=== PATIENT | male | born 1990 | race African-American/Black ===

== ENCOUNTER 2020-11-03 08:31 | Emergency (ER) | payer SELFPAY ==
[~2020-11-03] VITALS: Ht 167.6 cm; Wt 62.5 kg
[2020-11-03 08:35] VITALS: BP 137/89
[2020-11-03] MEDS ORDERED: ONDANSETRON PF 4 MG/2 ML VIAL. ONE (08:56)
[2020-11-03] MEDS ORDERED: fentaNYL PF VIAL 100 MCG/2 ML VIAL ONE (08:57)
[2020-11-03] MEDS ORDERED: DIPH,PERTUSS(ACELL),TET VAC/PF 0.5 ML SYRINGE. VAX IM ONE (09:30)
[2020-11-03] MEDS ORDERED: fentaNYL PF VIAL 100 MCG/2 ML VIAL IVP ONE ×2 (09:30→10:15)
[2020-11-03] MEDS ORDERED: ONDANSETRON PF 4 MG/2 ML VIAL. IVP ONE (09:30)
--- NOTE | 2020-11-03 09:39 | PHYS DOC ---
Past Medical History Past Surgical History: Other Additional Past Surgical Histo: FLUID PU[employer]PER[employer] SHUNT General Adult EDM: Chief Complaint: OTHER COMPLAINTS HPI: HPI: Patient is a 30 year old male who presents with here from [place] working and was going to go home and just check out of his hotel when he was running after a ball that his daughter threw and was not pink attention and ran into the side of a metal trash bin. This caused a deep laceration to the left upper cheek that extends through and through the left side of the nose and septum and then extends down into the upper left side of the lip but that is not through and through. When patient speaks the skin opens. He does have blood coming out of his nose. He states he does need a tetanus shot. States he is feeling queasy and rates his throbbing facial pain at a 10 out of 10. He denies loss of consciousness, vomiting, dizziness, neck pain, back pain, vision change, numbness or tingling. 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 Review of Systems: Review of Systems: Constitutional: Denies fever or chills. [] Eyes: Denies change in visual acuity. [] HENT: Denies nasal congestion or sore throat. [] Respiratory: Denies cough or shortness of breath. [] Cardiovascular: Denies chest pain or edema. [] GI: Denies abdominal pain, nausea, vomiting, bloody stools or diarrhea. [] : Denies dysuria. [] Musculoskeletal: Denies back pain or joint pain. + Facial pain [] Integument: Denies rash. + Facial laceration [] Neurologic: +headache, denies focal weakness or sensory changes. [] Endocrine: Denies polyuria or polydipsia. [] Lymphatic: Denies swollen glands. [] Psychiatric: Denies depression or anxiety. [] Heart Score: C/O Chest Pain: No Risk Factors: Risk Factors: DM, Current or recent (<one month) smoker, HTN, HLP, family history of CAD, obesity. Risk Scores: Score 0 - 3: 2.5% MACE over next 6 weeks - Discharge Home Score 4 - 6: 20.3% MACE over next 6 weeks - Admit for Clinical Observation Score 7 - 10: 72.7% MACE over next 6 weeks - Early Invasive Strategies Current Medications: Current Medications Medications (Trade) Dose Ordered Sig/Bernard Start Time Stop Time Status Last Admin Dose Admin Cefazolin Sodium/ Dextrose 50 ml @ 100 mls/hr 1X ONCE 11/03/20 09:30 11/03/20 09:59 Diphtheria/ Tetanus/Acell Pertussis (ADACEL TDap SYRINGE) 0.5 ml ONCE ONCE 11/03/20 09:30 11/03/20 09:31 DC Fentanyl Citrate (Fentanyl 2ml Vial) 50 mcg 1X ONCE 11/03/20 09:30 11/03/20 09:31 DC 11/03/20 09:26 50 MCG Ondansetron HCl (Zofran) 4 mg 1X ONCE 11/03/20 09:30 11/03/20 09:31 DC 11/03/20 09:25 4 MG Allergies: Allergies: Allergies Coded Allergies Type Severity Reaction Last Updated Verified No Known Drug Allergies 11/03/20 No Physical Exam: PE: Constitutional: Well developed, well nourished, no acute distress, non-toxic appearance. [] HENT: Normocephalic, atraumatic, bilateral external ears normal, oropharynx moist, no oral exudates, nose laceration. [] Eyes: PERRLA, EOMI, conjunctiva normal, no discharge. [] Neck: Normal range of motion, no tenderness, supple, no stridor. [] Cardiovascular:Heart rate regular rhythm, no murmur [] Lungs & Thorax: Bilateral breath sounds clear to auscultation [] Abdomen: Bowel sounds normal, soft, no tenderness, no masses, no pulsatile masses. [] Skin: Warm, dry, no erythema, no rash. Extensive facial laceration that is deep and opens when he speaks that is through and through to the left upper cheek to the left side of the nose and through the septum and down into the left upper mustache area but does not cross over the vermilion border and that is not through and through. [] Back: No tenderness, no CVA tenderness. [] Extremities: No tenderness, no cyanosis, no clubbing, ROM intact, no edema. [] Neurologic: Alert and oriented X 3, normal motor function, normal sensory function, no focal deficits noted. [] Psychologic: Affect normal, judgement normal, mood normal. [] Current Patient Data: Vital Signs: Vital Signs Date Time Temp Pulse Resp B/P (MAP) Pulse Ox O2 Delivery O2 Flow Rate FiO2 11/03/20 08:35 98.1 88 18 137/89 98 Room Air 98.1 EKG: EKG: [] Radiology/Procedures: Radiology/Procedures: [] Impression: [facility] [address] [place] [address] IMAGING REPORT Signed PATIENT: IRINA MARRERO: [id number] : 1990 LOCATION: ER AGE: 30 SEX: M EXAM STATUS: REG ER ORD. PHYSICIAN: NAHEED BAIRD MD REASON: shunt, trauma PROCEDURE: SKULL 2V EXAM: Skull, 2 views; chest, 2 views; abdomen, single view. HISTORY: Trauma. Shunt. COMPARISON: None. FINDINGS: 2 views of the skull and chest and a frontal view the abdomen are obtained. There are paired parietal approach ventricular catheter terminating over the expected location of the anterior lateral ventricles. There is a single catheter coursing through the neck and along the right thorax and right abdomen to terminate within the right hemipelvis. There is slight calcification along the proximal catheter. There is no infiltrate, pleural effusion or pneumothorax. The heart is normal in size. There is moderate colonic stool. There is no evidence of bowel obstruction. IMPRESSION: 1. Parietal approach ventricular catheters terminating over the expected location of the anterior lateral ventricles, with a single catheter coursing through the neck and along the chest and abdomen to terminate within the pelvis. 2. No acute finding. Electronically signed by: Raissa Morin MD (11/03/2020 10:18 AM) [id number] DICTATED and SIGNED BY: RAISSA MORIN MD DATE: 11/03/20 [id number] 0 [facility] [address] [place] [address] IMAGING REPORT Signed PATIENT: IRINA MARRERO: [id number] : 1990 LOCATION: ER AGE: 30 SEX: M EXAM STATUS: REG ER ORD. PHYSICIAN: NAHEED BAIRD MD REASON: shunt, trauma PROCEDURE: KUB EXAM: Skull, 2 views; chest, 2 views; abdomen, single view. HISTORY: Trauma. Shunt. COMPARISON: None. FINDINGS: 2 views of the skull and chest and a frontal view the abdomen are obta ined. There are paired parietal approach ventricular catheter terminating over the expected location of the anterior lateral ventricles. There is a single catheter coursing through the neck and along the right thorax and right abdomen to terminate within the right hemipelvis. There is slight calcification along the proximal catheter. There is no infiltrate, pleural effusion or pneumothorax. The heart is normal in size. There is moderate colonic stool. There is no evidence of bowel obstruction. IMPRESSION: 1. Parietal approach ventricular catheters terminating over the expected location of the anterior lateral ventricles, with a single catheter coursing through the neck and along the chest and abdomen to terminate within the pelvis. 2. No acute finding. Electronically signed by: Raissa Morin MD (11/03/2020 10:18 AM) [id number] DICTATED and SIGNED BY: RAISSA MORIN MD DATE: 11/03/20 [id number] 0 [facility] [address] [place] [address] IMAGING REPORT Signed PATIENT: MARIA ISABEL MARREROCCOUNT: [id number] : 1990 LOCATION: ER AGE: 30 SEX: M EXAM STATUS: REG ER ORD. PHYSICIAN: NAHEED BAIRD MD REASON: TRAUMA, FACIAL INJURY, RAN INTO DUMPSTER PROCEDURE: CT HEAD AND MAXILLOFACIAL WO EXAM: Head and maxillofacial bone CT without contrast. HISTORY: Trauma. TECHNIQUE: Computed tomographic images of the head and maxillary facial bone were obtained without contrast. *One or more of the following individualized dose reduction techniques were utilized for this examination: 1. Automated exposure control. 2. Adjustment of the mA and/or kV according to patient size. 3. Use of iterative reconstruction technique. COMPARISON: None. FINDINGS: There are paired right parietal approach ventricular catheters terminating along the superior anterior aspects of the compressed lateral ventricles. 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 There are suspected partial absence of the corpus callosum. There is no hemorrhage. There is no mass effect. The mastoid air cells are clear. The posterior arch of C1 is incidentally n onfused. The temporomandibular joints are intact. There is a right nasal bone fracture. There are tiny foci of gas within the left anterior nasal and maxillary soft tissues, the latter which is associated with a small soft tissue hematoma. There is leftward nasal septal deviation. The ostiomeatal units are patent. There is incidental torus medullaris. There is no acute finding invo lving the proximal cervical spine. There is endplate remodeling at multiple levels. IMPRESSION: 1. No acute intracranial finding. 2. Mildly displaced right nasal bone fracture of uncertain chronicity. This may be acute given the presence of contralateral anterior nasal and anterior maxillary soft tissue gas and a soft tissue hematoma 3. Bilateral right parietal approach ventricular catheters within decompressed lateral ventricles. 4. 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 These findings can be better assessed with a nonemergent MRI. Electronically signed by: Raissa Morin MD (11/03/2020 10:01 AM) [id number] DICTATED and SIGNED BY: RAISSA MORIN MD DATE: 11/03/20 [id number] 0 Course & Med Decision Making: Course & Med Decision Making Pertinent Labs and Imaging studies reviewed. (See chart for details) See HPI. Alert and oriented x4. Ambulatory with steady gait. No focal bony spinal tenderness. PERRLA. Full range of motion of the neck. Patient will ten derness as described in the HPI. Speaks in full clear sentences. We do not have ENT nor plastic surgery of which the patient will need to repair this. He is given 2 g of Ancef. He is given tetanus shot. Patient is given 4 mg of Zofran and 50mcg fentanyl. Approximately 7cm long. Laceration is cleaned up with saline. Wound itself was not flushed due to it being open and deep. The area is covered with nonstick dressing. Patient is excepted by Dr. Javier Israel at . 1227: Patient states that he is driving himself to . He states that he does not want a wait here. A bed has not been called us for him yet and we told him that he could take some time. We did reinforce that he has been accepted at which is waiting on a bed and that this can take some time. He states that he will go to and go back to the ER process again if he has to. Patient keeps saying that his and baby can stay with him in the room in the ER at and that is why he is leaving. Patient signed AMA. Patient was told by myself and the nurse that there are risks including disability, and infection. He states he understands the risks but he is leaving. I did call the transfer line and spoke to Selma let her know that the patient has left. [] Dragon Disclaimer: Dragon Disclaimer: This electronic medical record was generated, in whole or in part, using a voice recognition dictation system. Departure Departure Impression: Primary Impression: Facial fracture Qualified Codes: S02.2XXB - Fracture of nasal bones, initial encounter for open fracture Additional Impressions: Facial laceration Qualified Codes: S01.81XA - Laceration without foreign body of other part of head, initial encounter Facial trauma Qualified Codes: S09.93XA - Unspecified injury of face, initial encounter Disposition: 07 LEFT AGAINST MEDICAL ADVICE Condition: STABLE Referrals: NO PCP (PCP) [facility] Nov 03, 2020 09:39
--- NOTE | 2020-11-03 10:03 | RAD ---
EXAM: Head and maxillofacial bone CT without contrast. HISTORY: Trauma. TECHNIQUE: Computed tomographic images of the head and maxillary facial bone were obtained without co ntrast. *One or more of the following individualized dose reduction techniques were utilized for this examina tion: 1. Automated exposure control. 2. Adjustment of the mA and/or kV according to patient size. 3. Use of iterative reconstruction technique. COMPARISON: None. FINDINGS: There are paired right parietal approach ventricular catheters terminating along the superi or anterior aspects of the compressed lateral ventricles. 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 There are suspected partial abs ence of the corpus callosum. There is no hemorrhage. There is no mass effect. The mastoid air cells a re clear. The posterior arch of C1 is incidentally nonfused. The temporomandibular joints are intact. There is a right nasal bone fracture. There are tiny foci of gas within the left anterior nasal and maxillary soft tissues, the latter which is associated with a small soft tissue hematoma. There is le ftward nasal septal deviation. The ostiomeatal units are patent. There is incidental torus medullaris . There is no acute finding involving the proximal cervical spine. There is endplate remodeling at mu ltiple levels. IMPRESSION: 1. No acute intracranial finding. 2. Mildly displaced right nasal bone fracture of uncertain chronicity. This may be acute given the pr esence of contralateral anterior nasal and anterior maxillary soft tissue gas and a soft tissue hemat aby 3. Bilateral right parietal approach ventricular catheters within decompressed lateral ventricles. 4. 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 These findings can be better assessed with a nonemergent Andrae RI. Electronically signed by: Raissa Morrell MD (11/03/2020 10:01 AM) [id number]
[2020-11-03] MEDS ORDERED: IV NORMAL SALINE 1000ML BAG 1,000 ML IV ONE (10:15)
--- NOTE | 2020-11-03 10:21 | RAD ---
EXAM: Skull, 2 views; chest, 2 views; abdomen, single view. HISTORY: Trauma. Shunt. COMPARISON: None. FINDINGS: 2 views of the skull and chest and a frontal view the abdomen are obtained. There are paire d parietal approach ventricular catheter terminating over the expected location of the anterior later al ventricles. There is a single catheter coursing through the neck and along the right thorax and ri ght abdomen to terminate within the right hemipelvis. There is slight calcification along the proxima l catheter. There is no infiltrate, pleural effusion or pneumothorax. The heart is normal in size. Th ere is moderate colonic stool. There is no evidence of bowel obstruction. IMPRESSION: 1. Parietal approach ventricular catheters terminating over the expected location of the anterior lat eral ventricles, with a single catheter coursing through the neck and along the chest and abdomen to terminate within the pelvis. 2. No acute finding. Electronically signed by: Raissa Morrell MD (11/03/2020 10:18 AM) [id number]
[2020-11-03] MEDS ORDERED: MORPHINE SULFATE 4 MG/ML INJ. IV ONE (10:45)
== END 2020-11-03 12:23 | disposition home or self-care (01) ==
LOC: ER 08:31
DX: S02.2XXB Fracture of nasal bones, initial encounter for open fracture (principal); S01.412A Laceration without foreign body of left cheek and temporomandibular area, initial encounter; S01.21XA Laceration without foreign body of nose, initial encounter; Y28.8XXA Contact with other sharp object, undetermined intent, initial encounter; Y93.89 Activity, other specified; Y92.89 Other specified places as the place of occurrence of the external cause; Y99.8 Other external cause status
CPT/HCPCS: 70250; 70450; 70486; 71046; 74018; 90471; 90715; 96361; 96365; 96375; 96376; 99285; J0690; J2270; J2405; J3010; J7030

== ENCOUNTER 2021-03-12 17:19 | Emergency (ER) | payer SELFPAY ==
[~2021-03-12] VITALS: Ht 165.1 cm; Wt 63.6 kg
[2021-03-12 17:45] VITALS: BP 115/84
[2021-03-12] MEDS ORDERED: KETOROLAC 60 MG/2 ML VIAL. IM ONE (18:15)
--- NOTE | 2021-03-12 18:26 | RAD ---
EXAM: Right foot 3 views. HISTORY: Pain after injury. COMPARISON: None. FINDINGS: Three views of the right foot are obtained. There is soft tissue swelling medially at the first metatarsophalangeal joint. There is mild hallux v algus. Small densities projecting medial to the first metatarsophalangeal joint may reflect tophi. No fractures are identified. Alignment is normal. Joint spaces are maintained. IMPRESSION: 1. Soft tissue swelling and possible tophi at the first metatarsophalangeal joint. Correlate for alyx mercy arthropathy. Electronically signed by: Alvaro Mott MD (03/12/2021 6:23 PM) [facility]
--- NOTE | 2021-03-12 18:35 | PHYS DOC ---
Past Medical History Additional Past Medical Histor: hydrocephalus Past Surgical History: Other Additional Past Surgical Histo: [employer] SHUNT with revisions Smoking Status: Current Every Day Smoker Alcohol Use: Occasionally General Adult EDM: Chief Complaint: FOOT INJURY PAIN HPI: HPI: Patient is a 30 year old male who presents with right foot pain. Patient states he was walking down his stairs to go to work when he had a sudden onset of right foot pain. He reports swelling to the base of the great toe and pain extending proximally towards the ankle. Patient denies injury or trauma. He has no other complaints at this time. Review of Systems: Review of Systems: ROS negative except as mentioned in HPI. Heart Score: C/O Chest Pain: No Current Medications: Current Medications Medications (Trade) Dose Ordered Sig/Bernard Start Time Stop Time Status Last Admin Dose Admin Ketorolac Tromethamine (Toradol Im) 60 mg 1X ONCE 03/12/21 18:15 03/12/21 18:16 DC 03/12/21 18:31 60 MG Allergies: Allergies: Allergies Coded Allergies Type Severity Reaction Last Updated Verified No Known Drug Allergies 03/12/21 No Physical Exam: PE: Constitutional: Well developed, well nourished, no acute distress, non-toxic iam earance. Cardiovascular: Heart rate regular rhythm, no murmur. Lungs & Thorax: Bilateral breath sounds clear to auscultation. Skin: Warm, dry, no erythema, no rash. Extremities: Swelling and erythema noted at the first MTP joint of the right foot with surrounding tenderness, distal pulses intact. Extremities otherwise no tenderness, no cyanosis, no clubbing, ROM intact, no edema. Current Patient Data: Vital Signs: Vital Signs Date Time Temp Pulse Resp B/P (MAP) Pulse Ox O2 Delivery O2 Flow Rate FiO2 03/12/21 17:45 98.2 80 20 115/84 (94) 95 Room Air 98.2 Radiology/Procedures: Radiology/Procedures: PROCEDURE: FOOT RIGHT 3V EXAM: Right foot 3 views. HISTORY: Pain after injury. COMPARISON: None. FINDINGS: Three views of the right foot are obtained. There is soft tissue swelling medially at the first metatarsophalangeal joint. There is mild hallux valgus. Small densities projecting medial to the first metatarsophalangeal joint may reflect tophi. No fractures are identified. Alignment is normal. Joint spaces are maintained. IMPRESSION: 1. Soft tissue swelling and possible tophi at the first metatarsophalangeal joint. Correlate for crystalline arthropathy. Electronically signed by: Alvaro Mott MD (03/12/2021 6:23 PM) [facility] Course & Med Decision Making: Course & Med Decision Making Pertinent Labs and Imaging studies reviewed. (See chart for details) Patient presentation consistent with gout vs pseudogout. Advised patient to establish care with PCP to further evaluate and manage, possibly obtain prophylactic medication. Patient understands and is agreeable to discharge plan. Dragon Disclaimer: Dragon Disclaimer: This electronic medical record was generated, in whole or in part, using a voice recognition dictation system. Departure Departure Impression: Primary Impression: Gouty arthritis of right great toe Disposition: HOME / SELF CARE / HOMELESS Condition: STABLE Referrals: NO PCP (PCP) Patient Instructions: Gout, [id number] Additional Instructions: Please establish primary care with one of the clinics/physicians listed in the pamphlet provided to you today. Return to the emergency department if your pain becomes unmanageable at home. Scripts Indomethacin (INDOMETHACIN) 50 Mg Capsule 50 MG PO BID for 10 Days, #20 CAP Prov: SEDA DRIVER 03/12/21 SEDA DRIVER Mar 12, 2021 18:35
[2021-03-12] MEDS ORDERED: DEXAMETHASONE SOD PHOS 4 MG/ML VIAL IM ONE (18:45)
[2021-03-12] MEDS ORDERED: INDO50CA15 PO (18:58)
[2021-03-12] MEDS ORDERED: DEXAMETHASONE 4 MG TABLET PO ONE (19:15)
== END 2021-03-12 19:15 | disposition home or self-care (01) ==
LOC: ER 17:19
DX: M10.9 Gout, unspecified (principal); F17.200 Nicotine dependence, unspecified, uncomplicated
CPT/HCPCS: 73630; 96372; 99283; J1885